=== PATIENT | female | born 1990 | race Caucasian/White ===

== ENCOUNTER 2019-06-13 18:13 | Emergency (ER) | payer OTHER, SELFPAY ==
--- NOTE | ~2019-06-13 | XR_ITS ---
EXAMINATION: XR knee LT 3V DATE: 06/13/2019 18:31 INDICATION: Left knee pain post fall TECHNIQUE: AP, crosstable lateral and sunrise views of the left knee were obtained. COMPARISON: None FINDINGS: Alignment is normal. No fracture or osteochondral lesion. Joint spaces appear normal. Possible small left knee joint effusion but without layering lipohemarthrosis. Soft tissues are otherwise unremarka ble. IMPRESSION: 1. Possible small left knee joint effusion. No osseous abnormality. Reviewed, dictated and finalized at location A. [facility]
[2019-06-13 18:31] VITALS: BP 129/50; PULSE 104; RESP 16; TEMP 37.3; O2SAT 98
--- NOTE | 2019-06-13 18:42 | ED.LOWEXIN ---
HPI - Extremity Injury (Lower) General Chief Complaint: Extremity Injury, Lower Stated Complaint: FALL/L KNEE INJURY Time Seen by Provider: 06/13/19 18:16 Source: patient Mode of arrival: ambulatory Limitations: no limitations History of Present Illness HPI Narrative: 29-year-old female presents to urgent care for complaints of left knee pain and swelling for the past 3 days. Patient reports that she fell off of a barstool 3 days ago twisting her left knee. Patient has been wearing a brace and taking ibuprofen with minimal relief. Patient reports that she also been feeling a tightness and hearing popping to her left knee. Patient has been using crutches intermittently. Patient denies previous injury to her knee. Patient denies decreased range of motion, numbness or tingling. MD complaint: knee injury Onset (ago): day(s) (3) Injury: Left: knee Exacerbating factors: movement Context: fall Other symptoms: none Related Data Allergies Allergy/AdvReac Type Severity Reaction Status Date / Time No Known Allergies Allergy Verified 06/13/19 18:29 Review of Systems Review of Systems: All systems reviewed & are unremarkable except as noted in HPI and below Constitutional: Constitutional: Denies chills, Denies fever(s) and Denies weakness Cardiovascular: Cardiovascular: Denies chest pain and Denies radiating jaw, neck or arm pain Respiratory: Respiratory: Denies cough, Denies dyspnea and Denies wheezing Gastrointestinal: Gastrointestinal: Denies abdominal pain, Denies diarrhea, Denies nausea and Denies vomiting Musculoskeletal: Musculoskeletal: Reports arthralgias and Reports joint swelling Comments: left knee pain and swelling Neurologic: Denies dizziness [facility] Social History Social History (Updated 06/13/19 @ 18:45 by Brenda Brink APN) Smoking status: Never smoker Exam Const: General: healthy appearing, no acute distress and alert Orientation/consciousness: patient oriented x3 Neck: Neck: normal visual inspection Resp: Effort & Inspection: normal respiratory effort Auscultation: clear to auscultation bilaterally Cardio: Rate: regular rate Rhythm: regular rhythm Heart sounds: no murmurs Skin: General skin exam: normal color Rashes: no rashes Neuro: General: patient oriented x3 and moves all extremities Extrem: General: no pedal edema Other: Moderate effusion noted to medial aspect of left knee upon palpation. Full range of motion is noted. There is no erythema, bruising or signs of infection noted. pedal pushes equal and strong Psych: Appearance: grossly normal and well kempt Mental Status: mental status grossly normal Affect: normal affect Attitude: cooperative Course Vital Signs Vital signs: Vital Signs Temperature 37.3 C 06/13/19 18:31 Pulse Rate 104 H 06/13/19 18:31 Respiratory Rate 16 06/13/19 18:31 Blood Pressure 129/50 L 06/13/19 18:31 Pulse Oximetry 98 06/13/19 18:31 Temperature 37.3 C 06/13/19 18:31 Pulse Rate 104 H 06/13/19 18:31 Respiratory Rate 16 06/13/19 18:31 Blood Pressure 129/50 L 06/13/19 18:31 Pulse Oximetry 98 06/13/19 18:31 MDM - Extremity Injury (Lower) MDM Narrative Medical decision making narrative: Mikael wrap applied to left knee. Patient agrees to use crutches for ambulation. Patient agrees to call orthopedics tomorrow for appointment. Patient understands I am concerned about an tendon or ligament injury and she will need to see orthopedics for possible MRI and further evaluation. Differential Diagnosis Differential diagnosis: Likely other (Fracture, avulsion, abrasion) Imaging Data Radiologist's impression: Left knee x-ray --possible small left knee joint effusion. No fracture noted Critical Care Time Critical Care Time Critical Care Time: No Discharge Plan Discharge Clinical Impression: Acute pain of left knee Patient Disposition: Home, Self-Care Condition: Stable Instructions: Swollen Knee Joint (ED) Ad
== END 2019-06-13 18:54 | disposition home or self-care (01) ==
PROVIDERS: Emergency Provider Nurse Practitioner Family
DX: M25.562 Pain in left knee (principal)
CPT/HCPCS: 73562; 99203; G0463